=== PATIENT | male | born 1985 | race Caucasian/White ===

== ENCOUNTER 2017-08-02 16:04 | Emergency (ER) | payer OTHER ==
[2017-08-02 16:09] VITALS: BP 155/110; PULSE 99; RESP 20; TEMP 97.9; O2SAT 98
[2017-08-02] MEDS ORDERED: CEPHALEXIN 500 MG CAP PO ONE (17:13)
--- NOTE | 2017-08-02 17:17 | EDPHY ---
H & P Stated Complaint: left hand injury on trailer hitch Time Seen by Provider: 08/02/17 16:15 HPI/ROS: CHIEF COMPLAINT: Left hand laceration HISTORY OF PRESENT ILLNESS: The patient presents to the ED with a left hand laceration that occurred at home while manipulating a trailer. The patient sustained a laceration across the dorsal aspect of his 3rd MCP. The patient denies any numbness or weakness. He does have focal tenderness to the area. He denies additional injury. The patient denies significant past medical history. REVIEW OF SYSTEMS: Neuro: Negative for numbness Skin: As above Musculoskeletal: As above - Personal History Current Tetanus/Diphtheria Vaccine: Yes Current Tetanus Diphtheria and Acellular Pertussis (TDAP): Yes Tetanus Vaccine Date: < 10 years - Medical/Surgical History Hx Asthma: No Hx Chronic Respiratory Disease: No Hx Diabetes: No Hx Cardiac Disease: No Hx Renal Disease: No Hx Cirrhosis: No Hx Alcoholism: No Hx HIV/AIDS: No Hx Splenectomy or Spleen Trauma: No Other PMH: none reported - Social History Smoking Status: Never smoked - Physical Exam Exam: General: No acute distress Left hand: 2 cm laceration over the dorsum of the 3rd left MCP. Extensor tendon is visualized and intact without injury. There is no evidence of any capsular involvement. The patient has intact sensation to light touch on the radial and ulnar aspect of the finger. Vascular: Normal capillary refill Musculoskeletal: Tenderness to palpation over the left 3rd MCP joint Constitutional: Initial Vital Signs Temperature (C) 36.6 C 08/02/17 16:07 Heart Rate 99 08/02/17 16:07 Respiratory Rate 20 08/02/17 16:07 Blood Pressure 155/110 H 08/02/17 16:07 O2 Sat (%) 98 08/02/17 16:07 O2 Delivery Mode Room Air Allergies/Adverse Reactions: Penicillins Allergy (Verified 08/02/17 16:07) Home Medications: Medication Instructions Recorded NK [No Known Home Meds] 08/02/17 Medical Decision Making - Diagnostics Imaging Results: Imaging Impressions Hand X-Ray 08/02/17 16:18 Impression: Normal. ED Course/Re-evaluation: The patient was taken for an x-ray which demonstrates no evidence of a fracture. The patient's wound was anesthetized using lidocaine. It was copiously irrigated and closed in 2 layers. The patient will be started on prophylactic Keflex. The patient is also provided ortho glass splint for immobilization. Plan will be for suture removal in 14 days. Departure - Departure Disposition: Home, Routine, Self-Care Clinical Impression: Laceration of left hand Condition: Good Instructions: Laceration (ED) Additional Instructions: 1. Take antibiotics as directed for next 5 days. 2. Please wear splint as much as possible to limit movement across the MCP joint. 3. Return to the ED in 14 days for suture removal. 4. Apply antibiotic ointment to sutures twice daily for next week.
[2017-08-02] MEDS ORDERED: TDAP ADULT 0.5 ML INJ (BOOSTRIX) IM ONE ×2 (17:25→18:00)
== END 2017-08-02 17:58 | disposition home or self-care (01) ==
PROC: 0HQGXZZ Repair Left Hand Skin, External Approach (ICD-10-PCS; principal; 2017-08-02)
DX: S61.412A Laceration without foreign body of left hand, initial encounter (principal); Z23 Encounter for immunization; X58.XXXA Exposure to other specified factors, initial encounter; Y92.009 Unspecified place in unspecified non-institutional (private) residence as the place of occurrence of the external cause

== ENCOUNTER → 2017-11-28 | Outpatient (CLI) | payer OTHER | LOC: FIMAGING 16:15 | PROVIDERS: ATTEND Surgery | DX: M79.671 Pain in right foot (principal); M79.89 Other specified soft tissue disorders ==